=== PATIENT | female | born 1965 | race Caucasian/White ===

== ENCOUNTER 2017-09-28 19:46 | Emergency (ER) | payer OTHER ==
[~2017-09-28] VITALS: Ht 160 cm; Wt 81.7 kg
[2017-09-28 20:03] VITALS: BP 145/80
[2017-09-28] MEDS ORDERED: MEDROL4 M1 (20:08)
[2017-09-28] MEDS ORDERED: CYCLOBENZAPRINE5 MG PO (20:08)
[2017-09-28] MEDS ORDERED: NABUMETONE 750750 M1 PO (20:09)
[2017-09-28] MEDS ORDERED: ZOFRAN ODT4 MG DISSOLVE (20:41)
[2017-09-28] MEDS ORDERED: HYDROCODONE-AP1 EAC6 PO (20:41)
== END 2017-09-28 20:44 | disposition home or self-care (01) ==
LOC: ER 19:46
DX: M54.16 Radiculopathy, lumbar region (principal); K58.9 Irritable bowel syndrome, unspecified; Z90.49 Acquired absence of other specified parts of digestive tract

== ENCOUNTER → 2018-05-02 | Outpatient (CLI) | payer OTHER ==
[~2018-05-02] MED LIST: CYCLOBENZAPRINE5 MG PO; HYDROCODONE-AP1 EAC6 PO; MEDROL4 M1; NABUMETONE 750750 M1 PO; ZOFRAN ODT4 MG DISSOLVE
== END ==
LOC: RAD 10:09
DX: R05 Cough (principal); R06.02 Shortness of breath